=== PATIENT | female | born 1980 | race Caucasian/White ===

== ENCOUNTER 2023-07-25 09:34 | Emergency (ER) | payer BC ==
[~2023-07-25] VITALS: Ht 162.6 cm; Wt 108.3 kg
[2023-07-25] MEDS ORDERED: PHEN-239 PO (10:01)
[2023-07-25] MEDS ORDERED: PROA1AER2 INH (10:01)
[2023-07-25] MEDS ORDERED: DICY20TA20 PO (10:01)
[2023-07-25] MEDS ORDERED: WELLTAB38 PO (10:01)
[2023-07-25] MEDS ORDERED: OXYB10TA23 PO (10:01)
[2023-07-25] MEDS ORDERED: ONDA-83 PO (10:01)
[2023-07-25] MEDS ORDERED: OMEP40CA4 PO (10:01)
[2023-07-25 10:19] LABS: BASO % 0.4 % (0.0-1.0); EOS # 0.2 10^3/uL (0.0-0.5); EOS % 1.4 % (0.0-3.0); HEMOGLOBIN 14.3 g/dl (12.0-15.5); LYMPH # 2.8 10^3/uL (1.5-5.0); LYMPH % 26.6 % (24.0-44.0); MEAN CORPUSCULAR HEMOGLOBIN 28.5 pg (27.0-33.0); MEAN CORPUSCULAR HGB CONC 33.3 g/dl (32.0-36.5); MEAN CORPUSCULAR VOLUME 85.8 fl (80.0-96.0); MONO # 0.6 10^3/uL (0.0-0.8); MONO % 5.3 % (2.0-8.0); PLATELET COUNT, AUTOMATED 272 10^3/uL (150-450); RED BLOOD COUNT 5.01 10^6/uL (4.00-5.40); WHITE BLOOD COUNT 10.6 10^3/uL (4.0-10.0)
[2023-07-25 10:44] LABS: CK-MB VALUE MASS 1.2 NG/ML (<3.6); LIPASE 22 U/L (12-53)
[2023-07-25 10:46] LABS: CPK CREATINE PHOSPHOKINASE 99 U/L (34-145); MB/CK RELATIVE INDEX 1.21 (< OR =4)
[2023-07-25 10:47] LABS: ALBUMIN 3.2 G/DL (3.2-5.2); ALKALINE PHOSPHATASE 112 U/L (46-116); ALT/SGPT 28 U/L (7.0-40); AST/SGOT 13 U/L (<34); BILIRUBIN,DIRECT 0.2 MG/DL (<0.4); BILIRUBIN,TOTAL 0.5 MG/DL (0.3-1.2); BLOOD UREA NITROGEN 12 MG/DL (9-23); CALCIUM LEVEL 8.9 MG/DL (8.5-10.1); CARBON DIOXIDE LEVEL 28 MMOL/L (20-31); CHLORIDE LEVEL 108 MMOL/L (98-107); GLOMERULAR FILTRATION RATE > 60.0 (>58); GLUCOSE, FASTING 95 MG/DL (60-100); POTASSIUM SERUM 4.1 MMOL/L (3.5-5.1); SODIUM LEVEL 143 MMOL/L (136-145); TOTAL PROTEIN 6.5 G/DL (5.7-8.2)
[2023-07-25 10:48] LABS: FREE T4 1.16 NG/DL (0.89-1.76)
[2023-07-25] MEDS ORDERED: ISOVUE-370 76% 100ML VIAL As Ordered ONE (11:46)
[2023-07-25 11:47] LABS: CK-MB VALUE MASS 2.1 NG/ML (<3.6)
[2023-07-25 11:54] LABS: MB/CK RELATIVE INDEX 1.96 (< OR =4)
[2023-07-25] MEDS: ASPIRIN 81MG CHEW TABLET PO ONE (12:03)
[2023-07-25] MEDS: NITROGLYCERIN 0.4MG SUBL TABLET SL PRN (12:23)
[2023-07-25 13:19] LABS: INR 0.99; PARTIAL THROMBOPLASTIN TIME 30.9 SECONDS (24.8-34.2); PROTHROMBIN TIME 12.8 SECONDS (12.5-14.5)
[2023-07-25] MEDS: HEPARIN SOD (PORCINE) 5000UNITS/ML 1ML VIAL/SYRINGE IV ONE (13:44)
[2023-07-25] MEDS: HEPARIN DRIP 25,000 UNITS in IV 1 EA IV SCH (13:45)
[2023-07-25 14:17] VITALS: BP 159/89
[2023-07-25 15:04] VITALS: BP 152/98; TEMP 97.7; O2SAT 97
[2023-07-25 15:16] LABS: CK-MB VALUE MASS 4.3 NG/ML (<3.6); MB/CK RELATIVE INDEX 4.13 (< OR =4)
== END 2023-07-25 15:11 | disposition short-term general hospital (02) ==
LOC: M ED 09:34
DX: I21.4 Non-ST elevation (NSTEMI) myocardial infarction (principal); I45.10 Unspecified right bundle-branch block; I10 Essential (primary) hypertension; K21.9 Gastro-esophageal reflux disease without esophagitis; J45.909 Unspecified asthma, uncomplicated; R51.9 Headache, unspecified; F41.9 Anxiety disorder, unspecified; Z79.51 Long term (current) use of inhaled steroids; Z79.899 Other long term (current) drug therapy
CPT/HCPCS: 71046; 71275; 80048; 80076; 82550; 82553; 83690; 84439; 84443; 84484; 85025; 85610; 85730; 93005; 93041; 94760; 96365; 99285; Q9967